=== PATIENT | female | born 1990 | race Caucasian/White ===

== ENCOUNTER 2017-08-24 16:16 | Emergency (ER) | payer BC ==
--- NOTE | 2017-08-24 16:41 | PD ---
HPI Chief Complaint uterine contractions nausea, vomiting, diarrhea 1 day Date Seen: Aug 24, 2017 Time Seen: 17:00 Travel History International Travel<30 Days: No Contact w/Intl Traveler<30Days: No Known Affected Area: No History of Present Illness HPI Patient is 25 yo at 39 weeks and 5 days Pt receives care with Dr Candelaria. Pt reports uterine contractions starting this morning. Contractions were minutes apart prior to arrival on OB ED. Pt reports nausea and vomiting and diarrhea last night. She denies sick contacts. No fevers. Reports active movements. No vaginal bleeding or leaking. Weeks Gestation: 39 Para: 0 : 2 History Past Medical History Medical History: Denies Significant Hx Obstetric History Obstetric History primigravida Past Surgical History Surgical History: No Previous Surgery Family History Family History: Negative Social History Alcohol Use: No Tobacco Use: No Substance Abuse: No Allergies-Medications (Allergen,Severity, Reaction): Coded Allergies: No Known Allergies (Verified Allergy, Unknown, 08/24/17) Review of Systems Except as stated in HPI: all other systems reviewed are Neg Physical Exam Narrative GENERAL: Well-nourished, well-developed patient. SKIN: Warm and dry. HEAD: Normocephalic and atraumatic. EYES: No scleral icterus. No injection or drainage. ENT: No nasal drainage noted. Mucous membranes pink. Airway patent. NECK: Supple, trachea midline. No JVD. CARDIOVASCULAR: Regular rate and rhythm without murmurs, gallops, or rubs. RESPIRATORY: Breath sounds equal bilaterally. No accessory muscle use. BREASTS: Bilateral exam showed no masses , no retractions, no nipple discharge. ABDOMEN/GI: Abdomen soft, non-tender, bowel sounds present, no rebound, no guarding Gravid to [39] weeks size Fundal Height: [39] GENITOURINARY: External Genitalia: intact and normal in appearance BUS glands: [wnl] Cervix: [soft] Dilatation: [2-3cm] Effacement: [70%] Station: [-2] Presentation: [vertex] Membranes: [intact] Uterine Contractions: [5 minutes] FHT's: Category: [1] Baseline: [140s] Reactive: [-] Variability: [moderate] Decels: [none] EXTREMITIES: No cyanosis or edema. BACK: Nontender without obvious deformity. No CVA tenderness. NEUROLOGICAL: Awake and alert. Motor and sensory grossly within normal limits. Five out of 5 muscle strength in all muscle groups. Normal speech. Data Data Vital Signs Reviewed: Yes [facility] Medical Record Reviewed: Yes Plan Patient is a 26 yo at 39 weeks and 5 days with contractions. Cervix is unchanged from office exam 3 days ago. status reassuring. Pt has GI symptoms with nausea, vomiting and diarrhea. Not taking adequate PO. Will treat with IVFs, Zofran. UA shows dehydration with SG 1.036 and ketonuria. Pt's stay was extended for tachycardia to resolve Now Cat 1 prior to discharge. Pt reports feeling better. was able to tolerate fluids/crackers. Told to FU with office before EDC. Diagnosis Diagnosis: Primary Impression: 39 weeks gestation of Additional Impressions: Gastroenteritis Dehydration Ketonuria Disposition: 01 DISCHARGE HOME Condition: Good Geoffrey Davis MD Aug 24, 2017 16:41
[2017-08-24] MEDS ORDERED: ONDANSETRON HCL 4 MG/2 ML VIAL IV PUSH ONE (17:00)
[2017-08-24] MEDS ORDERED: LACTATED RINGER'S 1000 ML INJ 1,000 ML IV ONE (17:00)
[2017-08-24 17:42] LABS: AUTOMATED NEUTROPHIL # 10.2 TH/MM3 (1.8-7.7); BASOPHIL % 0.1 % (0.0-2.0); HEMATOCRIT 37.3 % (35.0-46.0); LYMPH % 2.7 % (9.0-44.0); LYMPHOCYTE # 0.3 TH/MM3 (1.0-4.8); MEAN CELL VOLUME 94.5 FL (80.0-100.0); MEAN CORPUSCULAR HGB CONC 34.9 % (32.0-36.0); MEAN PLATELET VOLUME 9.9 FL (7.0-11.0); MONO % 3.1 % (0.0-8.0); MONOCYTE # 0.3 TH/MM3 (0-0.9); NEUT % 94.1 % (16.0-70.0); PLATELET COUNT 125 TH/MM3 (150-450); RED BLOOD COUNT 3.95 MIL/MM3 (4.00-5.30); RED CELL DISTRIBUTION WIDTH 12.6 % (11.6-17.2); WHITE BLOOD COUNT 10.8 TH/MM3 (4.0-11.0)
[2017-08-24 17:48] LABS: BACTERIA, URINE MOD /hpf; BLOOD, URINE NEG (NEG); GLUCOSE,URINE NEG (NEG); KETONE, URINE 80 mg/dL (NEG); MUCUS URINE MOD /lpf (OCC); NITRITE,URINE NEG (NEG); SQUAMOUS EPITHELIAL CELL URINE 17 /hpf (0-5); URINE COLOR YELLOW (YELLW/STRAW); URINE LEUKOCYTE ESTERASE LARGE (NEG)
[2017-08-24 17:50] LABS: BILIRUBIN, URINE NEG (NEG)
[2017-08-24 18:13] LABS: BICARBONATE 20.8 MEQ/L (21.0-32.0); CALCIUM 7.9 MG/DL (8.5-10.1); CREATININE 0.81 MG/DL (0.50-1.00)
[2017-08-24] MEDS ORDERED: DEXTROSE 5%-LACTATED RING INJ 1,000 ML IV SCH (19:00)
[2017-08-29] MEDS ORDERED: PRENTAB7 (10:30)
== END 2017-08-24 22:09 | disposition home or self-care (01) ==
LOC: HOBED 16:16
DX: O26.893 Other specified pregnancy related conditions, third trimester (principal); E86.0 Dehydration; K52.9 Noninfective gastroenteritis and colitis, unspecified; R82.4 Acetonuria; Z3A.39 39 weeks gestation of pregnancy
CPT/HCPCS: 59025; 80048; 81001; 85025; 87086; 96361; 96374; 99284; J2405; J7120; J7121

== ENCOUNTER 2017-08-27 14:59 | Emergency (ER) | payer BC ==
--- NOTE | 2017-08-27 16:13 | PD ---
HPI Chief Complaint Contractions Date Seen: Aug 27, 2017 Time Seen: 16:09 Travel History International Travel<30 Days: No Contact w/Intl Traveler<30Days: No Known Affected Area: No History of Present Illness HPI Patient is 26-year-old white female [address] Candelaria for care who presents combining of regular contractions that are uncomfortable but not very painful yet. Denies bleeding or leakage of fluid. heart tones are reactive baby is active. Contractions are every 2-3 minutes and the detectable on the monitor Weeks Gestation: 40 Para: 0 : 1 History Social History Alcohol Use: No Tobacco Use: No Substance Abuse: No Allergies-Medications (Allergen,Severity, Reaction): Coded Allergies: No Known Allergies (Verified Allergy, Unknown, 08/24/17) Review of Systems General / Constitutional: No: Fever, Weight Gain, Chills, Other Eyes: No: Diploplia, Blurred Vision, Visual changes, Pain, Photophobia HENT: No: Headaches, Vertigo, Lightheadedness Cardiovascular: No: Irregular Rhythm, Chest Pain or Discomfort, Palpitations, Tachycardia, Syncope, Varicosities, Edema, Cyanosis Respiratory: No: Cough, Short of Breath, Other Gastrointestinal: No: Nausea, Vomiting, Diarrhea Genitourinary: No: Decreased Urinary Output, Oliguria Musculoskeletal: No: Limited ROM, Weakness, Cramping, Edema, Pain Skin: No Rash, No Itching, No Dryness, No Lumps, No Change in Pigmentation, No Change in Nails, No Alopecia, No Lesions Neurologic: No: Weakness, Dizziness, Syncope, Focal Abnormalities, Coordination Problem, Headache, Slurred Speech, Seizures Psychiatric: No: Depression, Suicidal Ideations, Homicidal Ideation Endocrine: No: Heat Intolerance, Cold Intolerance, Polydipsia, Polyuria, Other Physical Exam Narrative GENERAL: Well-nourished, well-developed patient. SKIN: Warm and dry. HEAD: Normocephalic and atraumatic. EYES: No scleral icterus. No injection or drainage. ENT: No nasal drainage noted. Mucous membranes pink. Airway patent. NECK: Supple, trachea midline. No JVD. CARDIOVASCULAR: Regular rate and rhythm without murmurs, gallops, or rubs. RESPIRATORY: Breath sounds equal bilaterally. No accessory muscle use. BREASTS: Bilateral exam showed no masses , no retractions, no nipple discharge. ABDOMEN/GI: Abdomen soft, non-tender, bowel sounds present, no rebound, no guarding Gravid to [-40] weeks size Fundal Height: [40-] GENITOURINARY: External Genitalia: intact and normal in appearance BUS glands: [-] Cervix: [-post] Dilatation: [3-] Effacement: [40-] Station: [-3] Presentation: [vtx-] Membranes: [intact ] Uterine Contractions: [-reg] FHT's: Category: [-1] Baseline: [-133] Reactive: [R-] Variability: [mod-] Decels: [none-] EXTREMITIES: No cyanosis or edema. BACK: Nontender without obvious deformity. No CVA tenderness. NEUROLOGICAL: Awake and alert. Motor and sensory grossly within normal limits. Five out of 5 muscle strength in all muscle groups. Normal speech. MDM Interpretation(s) Patient is 26-year-old white female 40 weeks presents clinically contractions. No bleeding or leakage of fluid. heart tones are reactive. Contractions are seen on the monitor. Contractions are uncomfortable but not real painful yet. Cervix is essentially unchanged from her recent office visit 3 cm/ 40/-3/vtx Plan Plan to discharge patient home to observation. She will return for increasing pain, bleeding, or leakage of fluid. Otherwise will see her OB provider as usual. Diagnosis Diagnosis: Primary Impression: Irregular uterine contractions Additional Impression: 40 weeks gestation of Disposition: DISCHARGE HOME Condition: Stable Sukhjinder Zayas II, MD Aug 27, 2017 16:13
== END 2017-08-27 16:22 | disposition home or self-care (01) ==
LOC: HOBED 14:59
DX: O47.1 False labor at or after 37 completed weeks of gestation (principal); Z3A.40 40 weeks gestation of pregnancy
CPT/HCPCS: 59025

== ENCOUNTER 2017-08-29 06:30 | Inpatient (IN) | payer BC ==
[~2017-08-29] VITALS: Ht 165.1 cm; Wt 93.0 kg
[2017-08-29] VITALS (26 sets, daily range): BP systolic 108–157; BP diastolic 60–89; PULSE 18–97; RESP 18; TEMP 98.7–99.2
--- NOTE | 2017-08-29 07:46 | PD ---
HPI Chief Complaint Contractions, spotting Travel History International Travel<30 Days: No Contact w/Intl Traveler<30Days: No Known Affected Area: No History of Present Illness HPI 26-year-old , IUP at 40.3 care uncomplicated per patient report The patient presents reporting onset of contractions at 10 PM last night. She reports they've increased in intensity and frequency at 3 AM to every 5 minutes. She reports she has noticed a blood tinge with wiping, but denies heavy vaginal bleeding or bleeding like a menses. There are no aggravating or alleviating factors and no attempted treatments to her contractions. She reports she she was seen 2 days ago and examined and the OB ED with a vaginal examination at that time. She denies any leaking of fluid. She reports good movement. Weeks Gestation: 40 Para: 0 : 1 History Past Medical History Medical History: Denies Significant Hx Obstetric History Obstetric History Past Surgical History Surgical History: No Previous Surgery Family History Narrative Family History Her mother had a CVA at 45 years old Social History Alcohol Use: No Tobacco Use: No Substance Abuse: No Allergies-Medications (Allergen,Severity, Reaction): Coded Allergies: No Known Allergies (Verified Allergy, Unknown, 08/24/17) Review of Systems Except as stated in HPI: all other systems reviewed are Neg Physical Exam Narrative GENERAL: Well-nourished, well-developed patient. SKIN: Warm and dry. HEAD: Normocephalic and atraumatic. EYES: No scleral icterus. No injection or drainage. ENT: No nasal drainage noted. Mucous membranes pink. Airway patent. NECK: Supple, trachea midline. No JVD. CARDIOVASCULAR: Regular rate and rhythm without murmurs, gallops, or rubs. RESPIRATORY: Breath sounds equal bilaterally. No accessory muscle use. BREASTS: Bilateral exam showed no masses , no retractions, no nipple discharge. ABDOMEN/GI: Abdomen soft, non-tender, bowel sounds present, no rebound, no guarding Gravid GENITOURINARY: External Genitalia: intact and normal in appearance. Normal BUS. SVE 3 ( tight)/80/-2/posterior. Vaginal exam was performed proceeding a speculum exam as the patient did not report the blood she has noticed prior to the examination. Speculum examination revealed physiologic discharge admixed with some brown tinged discharge and a small amount of pink discharge from recent examination. There is no evidence of active bleeding, and no evidence of any actual blood in the vagina. Repeat SVE 80/-1/midposition with BBOW. cephalic. FHT's: heart tone baseline is in the 120s with moderate long-term variability, no decelerations, and good accelerations noted. This is a category 1 heart rate tracing and reactive NST. EXTREMITIES: No cyanosis or edema. BACK: Nontender without obvious deformity. NEUROLOGICAL: Awake and alert. Motor and sensory grossly within normal limits. Normal speech. Musculoskeletal: Grossly normal range of motion, gait, muscle strength Psychiatric: Grossly normal memory and affect MDM Plan Assessment/plan: 1. IUP at 40.3 2. Contractions at term: Patient has made cervical meter changes records clerk observation period, so will admit. Discussed with Dr. Heard who is in agreement with plan. Discussed with patient in brief the risks of as well as in brief the risks of and indications for delivery. All the patient's questions were answered and she will be admitted to Dr. Heard's service 3. Vaginal spotting: Examination appears to be consistent with recent vaginal examinations with some brown tinged discharge and some pink tinged discharge from today's examination. Strict bleeding precautions were given. 4. well-being: Reassuring testing with reactive NST and category 1 heart rate tracing. kick counts daily. 5. GBS negative 6. Nikhil- Desi Mohamud MD Aug 29, 2017 07:45
--- NOTE | 2017-08-29 08:03 | PD ---
History of Present Illness History of Present Illness NST report Indications: IUP at 40.3, postterm , vaginal spotting heart tone baseline is in the 120s with moderate long-term variability, no decelerations, and good accelerations noted. This is a category 1 heart rate tracing and reactive NST. Final diagnosis: IUP at 40.3, postterm , vaginal spotting with no evidence of vaginal bleeding, reassuring testing, early labor Follow-up: With continue monitoring Desi Mohamud MD Aug 29, 2017 08:03
[2017-08-29] MEDS ORDERED: LACTATED RINGER'S 1000 ML INJ 1,000 ML IV PRN (09:54)
[2017-08-29] MEDS ORDERED: LACTATED RINGER'S 1000 ML INJ 1,000 ML IV SCH (09:54)
[2017-08-29] MEDS ORDERED: OXYTOCIN 30 UNITS-500ML PREMIX 500 ML IV ONE (10:00)
[2017-08-29] MEDS ORDERED: SODIUM CHLORID 0.9% 500 ML INJ 500 ML IV PRN (10:00)
[2017-08-29] MEDS ORDERED: CITRIC ACID-SODIUM CITRATE LIQ 30 ML UDC PO SCH (10:00)
[2017-08-29] MEDS ORDERED: LIDOCAINE HCL 1% 50 ML VIAL INFIL PRN (10:00)
[2017-08-29] MEDS ORDERED: MINERAL OIL 10 ML VIAL TOPICAL PRN (10:00)
[2017-08-29] MEDS ORDERED: LIDOCAINE HCL 1% 50 ML VIAL I-DERMAL PRN (10:00)
[2017-08-29] MEDS ORDERED: ONDANSETRON HCL 4 MG/2 ML VIAL IV PUSH PRN (10:00)
[2017-08-29] MEDS ORDERED: SODIUM CHLOR 0.9% 1000 ML INJ 1,000 ML IV PRN (10:14)
[2017-08-29 10:20] LABS: AUTOMATED NEUTROPHIL # 12.8 TH/MM3 (1.8-7.7); BASOPHIL % 0.1 % (0.0-2.0); HEMOGLOBIN 13.3 GM/DL (11.6-15.3); LYMPH % 9.1 % (9.0-44.0); LYMPHOCYTE # 1.4 TH/MM3 (1.0-4.8); MEAN CELL VOLUME 93.5 FL (80.0-100.0); MEAN CORPUSCULAR HGB CONC 34.2 % (32.0-36.0); MEAN PLATELET VOLUME 10.2 FL (7.0-11.0); MONO % 5.5 % (0.0-8.0); MONOCYTE # 0.8 TH/MM3 (0-0.9); NEUT % 85.3 % (16.0-70.0); PLATELET COUNT 152 TH/MM3 (150-450); RED BLOOD COUNT 4.17 MIL/MM3 (4.00-5.30); RED CELL DISTRIBUTION WIDTH 12.3 % (11.6-17.2)
[2017-08-29] MEDS ORDERED: PRENTAB7 ×2 (10:30)
[2017-08-29 10:40] LABS: BACTERIA, URINE RARE /hpf; BILIRUBIN, URINE NEG (NEG); BLOOD, URINE SMALL (NEG); GLUCOSE,URINE NEG (NEG); KETONE, URINE 40 mg/dL (NEG); MUCUS URINE FEW /lpf (OCC); NITRITE,URINE NEG (NEG); PH, URINE 6.5 (5.0-8.5); SQUAMOUS EPITHELIAL CELL URINE 1 /hpf (0-5); URINE COLOR YELLOW (YELLW/STRAW); URINE LEUKOCYTE ESTERASE MOD (NEG)
--- NOTE | 2017-08-29 14:35 | HHI.PR ---
PRICING DIRECTOR Note Note S: doing well, having painful ctx, no LOF, denies FREIRE, or blurry vision O: BP range: 134-141/71-89 : 6/80/-2, AROM, thin mec FHTs: 130s, moderate variability, no decels, positive acles, TOCO: q5 min, irregular pattern A/P: 26 yo G1 at 41w3d by L/18 here for labor 1. IUP: cat 1 tracing - ceph, GBS neg, ant placenta, EFW 7.5-8lbs - female fetus 2. Labor: cervix changing s/p AROM(1415), thin mec, if no chnage next check begin pit. Does not desire epidural. 3. Rh neg: Rhogam per protocol 4. Elevated BP: one reading, asymptomatic, continue routine vitals. Loco Heard MD Aug 29, 2017 14:35
--- NOTE | 2017-08-29 18:50 | HHI.PR ---
SENSOR OPERATOR Note Note S: doing well, having painful ctx, continued LOF, denies FREIRE, or blurry vision O: BP range: 134-141/71-89 : 7/80/0, thin mec, IUPC placed FHTs: 140-150s moderate variability, occasional late and variable decel, positive acceleration TOCO: q5 min, irregular pattern A/P: 26 yo G1 at 41w3d by L/18 here for labor 1. IUP: cat 1-2 tracing, IUPC placed may need amnioinfusion - ceph, GBS neg, ant placenta, EFW 7.5-8lbs - female fetus 2. Labor: cervix changing slightly, IUPC placed and will start pit. Approached indications for for arrest if no change in next 4-6hrs. Does not desire epidural. 3. Rh neg: Rhogam per protocol 4. Elevated BP: one reading, asymptomatic, continue routine vitals. Loco Heard MD Aug 29, 2017 18:50
[2017-08-29] MEDS ORDERED: OXYTOCIN 30 UNITS-500ML PREMIX 500 ML IV PRN (19:00)
[2017-08-30] VITALS (19 sets, daily range): BP systolic 106–127; BP diastolic 37–88; PULSE 55–88; RESP 15–18; TEMP 97.6–98.2; O2SAT 97–100
[2017-08-30] MEDS ORDERED: LIDOCAINE HCL 1% 20 ML VIAL ONE (02:08)
[2017-08-30] MEDS ORDERED: LIDOCAINE 1%/EPINEPHrine 1:100,000 SOLN 30 ML VIAL ONE (02:08)
[2017-08-30] MEDS ORDERED: BENZOCAINE 20% TOPICAL SPRAY 60 ML CAN TOPICAL PRN (02:45)
[2017-08-30] MEDS ORDERED: oxyCODONE/ACETAMINOPHEN 5 MG/325 MG TAB PO PRN ×2 (02:45)
[2017-08-30] MEDS ORDERED: ZOLPIDEM TARTRATE 5 MG TAB PO PRN (02:45)
[2017-08-30] MEDS ORDERED: ACETAMINOPHEN 325 MG TAB PO PRN (02:45)
[2017-08-30] MEDS ORDERED: DOCUSATE SODIUM 50 MG/SENNA 8.6 MG TAB PO PRN (02:45)
[2017-08-30] MEDS ORDERED: WITCH HAZEL 50%/GLYCERIN 12.5% 40 PAD JAR TOPICAL PRN (02:45)
[2017-08-30] MEDS ORDERED: SODIUM CHLORIDE 0.9% FLUSH 10 ML FLUSH IV FLUSH PRN (02:45)
[2017-08-30] MEDS ORDERED: OXYTOCIN 30 UNITS-500ML PREMIX 500 ML IV SCH (02:45)
[2017-08-30] MEDS ORDERED: ONDANSETRON ODT 4 MG TAB PO PRN (02:45)
[2017-08-30] MEDS ORDERED: ALUMINUM/MAGNESIUM/SIMETH 30 ML CUP PO PRN (02:45)
--- NOTE | 2017-08-30 02:51 | PD.OB.DELI ---
Weeks gestation: 40 Gest age assessed date: Aug 30, 2017 Pt started active labor?: Yes Active labor start date: Aug 29, 2017 Medical induction of labor?: No Artificial rupture of membrane: Yes Anesthesia: Lidocaine local to perineum Episiotomy: None Vaginal Delivery: Normal, Spontaneous Presentation: Occiput anterior Nuchal Cord: x1 (bandolier) Delayed cord clamping (45 sec): No Shoulder Dystocia: Other (no dystocia) : Female, Single Delivery date: Aug 30, 2017 Delivery time: 01:42 One Minute : 5 Five Minute : 8 Placenta: Spontaneous delivery, Intact, 3 vessel cord, Cord pH (arterial and venous blood gases pending) Laceration: 2 deg (repaired with 3-0 Vicryl) Repair: Vicryl running Estimated blood loss: 400 Additional Information Throughout pushing efforts had reassuring heart tones, The patient began pushing after the bed was broken down, the head upon was allowed to restitute naturally after delivery with a supported perineum, with gentle downward guidance anterior shoulder was delivered followed by gentle upper guidance for the posterior shoulder, the torso and lower extremities delivered with ease with continued perineal support. Following delivery the had poor tone and poor respiratory effort, cord was clamped and cut immediately and handed to the team.. After the cord was clamped and cut, cord pH and blood were obtained. Pitocin was bolused and with fundal massage the placenta was delivered, there is minimal bleeding from above and uterus was firm. The perineum vagina and cervix were inspected and a 2nd degree was repaired as above. The patient tolerated the procedure well and was left in the birthing suite Loco Heard MD Aug 30, 2017 02:51
--- NOTE | 2017-08-30 02:57 | HHI.DCPOC ---
Discharge Care Plan Diagnosis: (1) 40 weeks gestation of (2) Normal vaginal delivery (3) Normal labor Your Health Problems Are: Vaginal delivery Report Symptoms to Your Doctor -Temperature above 100.5 degrees -Redness, of incision or excessive or foul smelling drainage -Unusual pain or calf pain -Increased vaginal bleeding -Painful or difficulty urinating -Feelings of extreme sadness or anxiety after 2 weeks Goals to Promote Your Health * To prevent worsening of your condition and complications * To maintain your health at the optimal level Directions to Meet Your Goals Take your medications as prescribed Follow your dietary instruction Follow activity as directed Ensure plenty of rest for recovery Drink fluids for hydration Keep your appointments as scheduled Take your immunizations and boosters as scheduled If your symptoms worsen call your PCP, if no PCP go to Urgent Care Center or Emergency Room Smoking is Dangerous to Your Health. Avoid second hand smoke Call the 24-hour crisis hotline for domestic abuse at Loco Heard MD Aug 30, 2017 02:57
--- NOTE | 2017-08-30 07:54 | HHI.OB ---
Subjective Post Day: 0 Remarks doing well, pain controlled, VB > menses, no clots, voiding. Objective Vitals/I&O Vital Signs Date Time Temp Pulse Resp B/P (MAP) Pulse Ox O2 Delivery O2 Flow Rate FiO2 08/30/17 05:20 98.1 59 18 113/53 (73) 98 08/30/17 03:46 62 119/73 (88) 08/30/17 03:45 18 08/30/17 03:31 59 126/88 (101) 08/30/17 03:30 18 08/30/17 03:30 97.9 08/30/17 03:15 18 08/30/17 03:15 55 120/59 (79) 08/30/17 03:01 56 112/60 (77) 08/30/17 03:00 18 08/30/17 02:46 57 126/61 (82) 08/30/17 02:32 18 08/30/17 02:31 64 119/53 (75) 08/30/17 02:28 97.6 08/30/17 02:27 18 08/30/17 02:22 65 109/37 (61) 08/30/17 02:00 18 08/30/17 01:47 88 127/77 (94) 08/30/17 00:01 66 106/57 (73) 08/29/17 23:31 57 153/60 (91) 08/29/17 23:30 18 08/29/17 23:16 71 148/84 (105) 08/29/17 23:01 59 146/71 (96) 08/29/17 23:00 18 08/29/17 23:00 98.7 08/29/17 22:46 56 140/66 (90) 08/29/17 22:43 98.7 18 08/29/17 22:31 69 129/65 (86) 08/29/17 22:30 18 08/29/17 22:15 60 152/82 (105) 08/29/17 22:00 83 146/73 (97) 08/29/17 22:00 18 08/29/17 21:45 67 138/69 (92) 08/29/17 21:30 98.7 08/29/17 21:30 148/86 (106) 08/29/17 21:30 80 18 1/19/18 21:16 66 144/75 (98) 08/29/17 21:00 18 08/29/17 21:00 79 157/88 (111) 08/29/17 20:46 83 153/81 (105) 08/29/17 20:30 18 08/29/17 20:30 18 08/29/17 20:15 77 08/29/17 20:15 133/72 (92) 08/29/17 20:00 84 111/76 (88) 08/29/17 20:00 18 08/29/17 19:45 75 128/65 (86) 08/29/17 19:30 86 108/89 (95) 08/29/17 15:59 18 08/29/17 15:58 99.1 08/29/17 14:30 18 08/29/17 13:24 81 134/71 (92) 08/29/17 13:24 99.2 18 08/29/17 09:45 97 141/89 (106) Objective Remarks GENERAL: Well-nourished, well-developed patient. CARDIOVASCULAR: Regular rate and rhythm without murmurs, gallops, or rubs. RESPIRATORY: Breath sounds equal bilaterally. No accessory muscle use. ABDOMEN/GI: Abdomen soft, non-tender. Fundus: Firm, non-tender at umbilicus. GENITOURINARY: Light to moderate bleeding. EXTREMITIES: No cyanosis or edema, non-tender, without signs of DVT. Medications and IVs Current Medications Medications (Trade) Dose Ordered Sig/Tj Route Start Time Stop Time Status Last Admin (Xylocaine 1% Inj (50 ml)) 0.1 ml UNSCH X1 PRN I-DERMAL 08/29/17 10:00 09/01/17 09:59 (Xylocaine 1% Inj (50 ml)) 10 ml UNSCH X1 PRN INFIL 08/29/17 10:00 08/31/17 09:59 (NS Flush) 2 ml BID IV FLUSH 08/30/17 09:00 (NS Flush) 2 ml UNSCH PRN IV FLUSH 08/30/17 02:45 (Tylenol) 650 mg Q4H PRN PO 08/30/17 02:45 (Motrin) 800 mg Q8H PRN PO 08/30/17 02:45 (Percocet 5-325 Mg) 1 tab Q4H PRN PO 08/30/17 02:45 (Percocet 5-325 Mg) 2 tab Q4H PRN PO 08/30/17 02:45 (Americaine 20% Top Spr) 1 spray Q4H PRN TOPICAL 08/30/17 02:45 (Tucks Pads) 1 applic QID PRN TOPICAL 08/30/17 02:45 (April-Colace) 2 tab Q12H PRN PO 08/30/17 02:45 (Ambien) 5 mg HS PRN PO 08/30/17 02:45 (M-M-R Ii Inj) 0.5 ml ONCE ONCE SQ 08/30/17 16:00 08/30/17 16:01 (Boostrix Inj) 0.5 ml ONCE ONCE IM 08/30/17 16:00 08/30/17 16:01 (Mag-Al Plus Susp Liq) 15 ml Q8H PRN PO 08/30/17 02:45 (Zofran Odt) 4 mg Q6H PRN PO 08/30/17 02:45 Assessment/Plan Assessment and Plan 26 yo s/p at 40w3d 1. PPD #0: doing well, anticipate d/c in next 48hrs, new born in NICU due to respiratory issues. - female 2. Rh neg: Rhogam per protocol Loco Haerd MD Aug 30, 2017 07:54
[2017-08-30] MEDS ORDERED: SODIUM CHLORIDE 0.9% FLUSH 10 ML FLUSH IV FLUSH SCH (09:00)
[2017-08-30] MEDS ORDERED: MEASLES, MUMPS, RUBELLA VACCINE 0.5 ML VIAL SQ ONE (16:00)
[2017-08-30] MEDS ORDERED: DIPHTH/TETANUS/ACEL PERTUSSIS (BOOSTER) 0.5 ML VIAL/PFS IM ONE (16:00)
[2017-08-31 07:50] VITALS: BP 117/72; PULSE 56; RESP 18; TEMP 97.7
--- NOTE | 2017-08-31 09:07 | HHI.OB ---
Subjective Post Day: 1 Remarks doing well, pain controlled, breast feeding, VB < menses Objective Vitals/I&O Vital Signs Date Time Temp Pulse Resp B/P (MAP) Pulse Ox O2 Delivery O2 Flow Rate FiO2 08/31/17 07:50 97.7 56 18 117/72 (87) 08/30/17 19:35 98.2 68 16 120/68 (85) 100 Objective Remarks GENERAL: Well-nourished, well-developed patient. CARDIOVASCULAR: Regular rate and rhythm without murmurs, gallops, or rubs. RESPIRATORY: Breath sounds equal bilaterally. No accessory muscle use. ABDOMEN/GI: Abdomen soft, non-tender. Fundus: Firm, non-tender at umbilicus. GENITOURINARY: Light to moderate bleeding. EXTREMITIES: No cyanosis or edema, non-tender, without signs of DVT. Medications and IVs Current Medications Medications (Trade) Dose Ordered Sig/Tj Route Start Time Stop Time Status Last Admin (Xylocaine 1% Inj (50 ml)) 0.1 ml UNSCH X1 PRN I-DERMAL 08/29/17 10:00 09/01/17 09:59 (Xylocaine 1% Inj (50 ml)) 10 ml UNSCH X1 PRN INFIL 08/29/17 10:00 08/31/17 09:59 (NS Flush) 2 ml BID IV FLUSH 08/30/17 09:00 (NS Flush) 2 ml UNSCH PRN IV FLUSH 08/30/17 02:45 (Tylenol) 650 mg Q4H PRN PO 08/30/17 02:45 (Motrin) 800 mg Q8H PRN PO 08/30/17 02:45 (Percocet 5-325 Mg) 1 tab Q4H PRN PO 08/30/17 02:45 (Percocet 5-325 Mg) 2 tab Q4H PRN PO 08/30/17 02:45 (Americaine 20% Top Spr) 1 spray Q4H PRN TOPICAL 08/30/17 02:45 (Tucks Pads) 1 applic QID PRN TOPICAL 08/30/17 02:45 (April-Colace) 2 tab Q12H PRN PO 08/30/17 02:45 (Ambien) 5 mg HS PRN PO 08/30/17 02:45 (Mag-Al Plus Susp Liq) 15 ml Q8H PRN PO 08/30/17 02:45 (Zofran Odt) 4 mg Q6H PRN PO 08/30/17 02:45 Assessment/Plan Assessment and Plan 26 yo s/p at 40w3d 1. PPD #1: doing well, anticipate d/c today or tomorrow depending if can go, is still in NICU due to respiratory issues but plans to return to floor today. - female 2. Rh neg: Rhogam per protocol Loco Heard MD Aug 31, 2017 09:07
[2017-08-31] MEDS: IBUPROFEN 800 MG TAB PO PRN ×2 (09:44→18:09)
[2017-08-31 20:45] VITALS: BP 124/70; PULSE 56; RESP 18; TEMP 98.1
[2017-09-01 08:00] VITALS: BP 123/70; PULSE 55; RESP 14; TEMP 97.8
--- NOTE | 2017-09-01 08:43 | HHI.OB ---
Subjective Post Day: 2 Remarks PPD#2,stable,no c/o Objective Vitals/I&O Vital Signs Date Time Temp Pulse Resp B/P (MAP) Pulse Ox O2 Delivery O2 Flow Rate FiO2 09/01/17 08:00 97.8 55 14 09/01/17 08:00 123/70 (87) 08/31/17 20:45 98.1 56 18 08/31/17 20:45 124/70 (88) Objective Remarks GENERAL: Well-nourished, well-developed patient. CARDIOVASCULAR: Regular rate and rhythm without murmurs, gallops, or rubs. RESPIRATORY: Breath sounds equal bilaterally. No accessory muscle use. ABDOMEN/GI: Abdomen soft, non-tender. Fundus: Firm, non-tender at umbilicus. GENITOURINARY: Light to moderate bleeding. EXTREMITIES: No cyanosis or edema, non-tender, without signs of DVT. Medications and IVs Current Medications Medications (Trade) Dose Ordered Sig/Tj Route Start Time Stop Time Status Last Admin (Xylocaine 1% Inj (50 ml)) 0.1 ml UNSCH X1 PRN I-DERMAL 08/29/17 10:00 09/01/17 09:59 (NS Flush) 2 ml BID IV FLUSH 08/30/17 09:00 (NS Flush) 2 ml UNSCH PRN IV FLUSH 08/30/17 02:45 (Tylenol) 650 mg Q4H PRN PO 08/30/17 02:45 (Motrin) 800 mg Q8H PRN PO 08/30/17 02:45 08/31/17 18:09 (Percocet 5-325 Mg) 1 tab Q4H PRN PO 08/30/17 02:45 (Percocet 5-325 Mg) 2 tab Q4H PRN PO 08/30/17 02:45 (Americaine 20% Top Spr) 1 spray Q4H PRN TOPICAL 08/30/17 02:45 08/31/17 18:09 (Tucks Pads) 1 applic QID PRN TOPICAL 08/30/17 02:45 08/31/17 18:10 (April-Colace) 2 tab Q12H PRN PO 08/30/17 02:45 (Ambien) 5 mg HS PRN PO 08/30/17 02:45 (Mag-Al Plus Susp Liq) 15 ml Q8H PRN PO 08/30/17 02:45 (Zofran Odt) 4 mg Q6H PRN PO 08/30/17 02:45 Assessment/Plan Assessment and Plan 26 yo s/p at 40w3d 1. PPD #1: doing well, anticipate d/c today; return to office in 6 weeks Discharge Planning routine Attending Attestation seen by Josue Marcus MD Sep 01, 2017 08:42
== END 2017-09-01 12:19 | disposition home or self-care (01) | DRG 775 ==
LOC: HOBED 06:30 → H2EA 09:50 → H1EA 08-30 05:05
PROVIDERS: ADMIT Obstetrics & Gynecology; ATTEND Obstetrics & Gynecology
PROC: 10907ZC Drainage of Amniotic Fluid, Therapeutic from Products of Conception, Via Natural or Artificial Opening (ICD-10-PCS; 2017-08-29)
PROC: 10H07YZ Insertion of Other Device into Products of Conception, Via Natural or Artificial Opening (ICD-10-PCS; 2017-08-29)
PROC: 10E0XZZ Delivery of Products of Conception, External Approach (ICD-10-PCS; principal; 2017-08-30)
PROC: 0KQM0ZZ Repair Perineum Muscle, Open Approach (ICD-10-PCS; 2017-08-30)
DX: O48.0 Post-term pregnancy (principal); O75.89 Other specified complications of labor and delivery; R03.0 Elevated blood-pressure reading, without diagnosis of hypertension; O70.1 Second degree perineal laceration during delivery; Z37.0 Single live birth; Z3A.40 40 weeks gestation of pregnancy
CPT/HCPCS: 59025; 80307; 81001; 82805; 85025; 85461; 86850; 86900; 86901; 90384; J2790; J7120